=== PATIENT | male | born 1975 | race Caucasian/White ===

== ENCOUNTER 2021-09-28 11:41 | Outpatient (CLI) | payer BC, SELFPAY ==
[2021-09-28 11:47] VITALS: BP 150/96; PULSE 67; RESP 16; TEMP 36.7; O2SAT 99; BMI 33.5
[2021-09-28 13:13] VITALS: BP 135/81; PULSE 78; RESP 16; TEMP 36.5; O2SAT 92
== END 2021-09-28 11:42 | disposition home or self-care (01) ==
LOC: OPS 11:44
PROVIDERS: PCP Family Medicine; Visit Provider Family Medicine
DX: U07.1 COVID-19 (principal)
CPT/HCPCS: 96365